=== PATIENT | male | born 1945 | race Caucasian/White ===

== ENCOUNTER 2023-10-17 09:44 | Day surgery (SDC) | payer BC, SELFPAY ==
[2023-10-15 10:59] VITALS: BMI 25.9
[2023-10-17 10:05] VITALS: BP 142/69; PULSE 66; RESP 18; TEMP 36.4; O2SAT 100; BMI 25.9
[2023-10-17] MEDS: LACTATED RINGERS 1,000 ML 42 ML IV (10:29)
--- NOTE | 2023-10-17 11:07 | PM.PREOP ---
Pre-operative Note Interval Note History & Physical reviewed/Exam performed by Physician: Yes Changes to H&P: No
--- NOTE | 2023-10-17 11:28 | SUR.OPER ---
Lithotomy on padded OR bed, head on pillow, arms secured on padded arm boards at <90 degrees abduction. Legs secured in padded yellow fins stirrups.
[2023-10-17] MEDS: levoFLOXacin 500 MG/100 ML PIGGYBACK 100 MG IV (11:45)
[2023-10-17] MEDS: ACETAMINOPHEN IV 1,000 MG/100 ML VIAL 400 MG IV (12:13)
[2023-10-17] MEDS: ONABOTULINUMTOXINA 200 UNIT VIAL INJ (12:13)
--- NOTE | 2023-10-17 12:28 | P.OP_ITS ---
Operative Date/Time/Diagnoses Date of procedure: 10/17/23 Time of procedure: 12:28 Pre-op diagnosis: 1. Urge incontinence. 2. Failure of oral pharmacologic therapy. Procedure & Clinicians Procedure: 1. Cystoscopy/Botox injection. Same procedure as scheduled: Yes Indications: 1. Urge incontinence. 2. Failure of oral pharmacologic therapy. Surgeon: Carlos Cordero Click Yes if Unassisted: Yes Anesthesia Type: General Operative Notes Findings: 1. Urethra-normal caliber without annular stricture or lesion. 2. External sphincter-coapted with normal overlying urothelium and vascularity. 3. 3.5-4 cm length prostate with mild lateral lobe hyperplasia and [id number] elevation of median lobe. 4. Bladder-severe trabeculation and cellule formation. Normal ureteral orifices bilaterally with clear efflux. No stone, tumor, or diverticulum seen. Closure Type: not applicable Specimen(s): none sent Estimated Blood Loss (mL): 0 Blood products transfused: none Procedure in detail: Patient was positioned supine and was administered general anesthesia. He was then repositioned in semi lithotomy in the lower abdomen, genitalia, and groin were then prepped and draped in sterile fashion. A 20 [place] continuous flow cystoscope was then passed the lower urinary tract with 12 degree lens with findings as described above. Aliquots of a proximally 1 cc times 30 were administered and random locations in the bladder base and lower lateral, and posterior wall of the bladder in the muscularis. The bladder was then drained completely in the continuous flow cystoscope was removed. The patient was then repositioned in supine, was awakened, then transferred to [facility] awake and in stable condition. Complications: none Post-operative Condition: stable Disposition: PACU Plan for aftercare: Discharge home.
[2023-10-17 12:29] VITALS: BP 133/72; PULSE 59; RESP 10; TEMP 36.3; O2SAT 97
[2023-10-17 12:34] VITALS: BP 147/80; PULSE 60; RESP 8; O2SAT 97
--- NOTE | 2023-10-17 12:37 | SUR.PHASEI ---
Received to PACU after general anesthesia. Oral airway in place. No further airway assistance required. Report from ANI Redd and DENVER Ramirez.
[2023-10-17 12:39] VITALS: BP 147/80; PULSE 60; RESP 12; O2SAT 97
[2023-10-17 12:44] VITALS: BP 148/79; PULSE 60; RESP 144; TEMP 36.3; O2SAT 95
[2023-10-17 12:45] VITALS: BP 154/85; PULSE 60; RESP 14; O2SAT 96
== END 2023-10-17 13:08 | disposition home or self-care (01) ==
PROVIDERS: PCP Specialist; Referring Provider Specialist; Visit Provider Specialist
PROC: (CPT 52287; principal; 2023-10-17 10:45)
DX: N39.41 Urge incontinence (principal); N32.89 Other specified disorders of bladder; I10 Essential (primary) hypertension; E11.9 Type 2 diabetes mellitus without complications; G47.33 Obstructive sleep apnea (adult) (pediatric); J45.909 Unspecified asthma, uncomplicated; E78.5 Hyperlipidemia, unspecified; I25.10 Atherosclerotic heart disease of native coronary artery without angina pectoris; I49.9 Cardiac arrhythmia, unspecified; K21.9 Gastro-esophageal reflux disease without esophagitis; Z79.84 Long term (current) use of oral hypoglycemic drugs; Z95.0 Presence of cardiac pacemaker; Z95.1 Presence of aortocoronary bypass graft; Z95.5 Presence of coronary angioplasty implant and graft
CPT/HCPCS: 52287; 82962; 93005; J0136; J0585; J1956; J3010

== ENCOUNTER 2024-09-20 09:50 | Day surgery (SDC) | payer BC, SELFPAY ==
[2024-09-13 10:52] VITALS: BMI 23.1
[2024-09-20] VITALS (7 sets, daily range): BP systolic 150–180; BP diastolic 82–95; PULSE 60–61; RESP 12–18; TEMP 36.5–36.6; O2SAT 95–99; BMI 23.1
[2024-09-20] MEDS: LACTATED RINGERS 1,000 ML 21 ML IV (10:30)
--- NOTE | 2024-09-20 11:35 | P.HP_ITS ---
History of Present Illness History of Present Illness Date Patient Seen: 09/20/24 Time Patient Seen: 11:35 Chief complaint: Overactive bladder Narrative: 79 y/o M returns today for a repeat intravesical Botox injection. Briefly, he admits to urinary frequency, urinary urgency (must be w/in the restroom w/in 2 minutes otherwise he will drip several drops of urine) and bothersome nocturia. He otherwise denies a weak urinary stream, the sensation of incomplete bladder emptying or urinary hesitancy/intermittency. He is no longer taking anticholinergics for management of his symptoms as they did not work for him. He tried to get ahold of Vibegron, however, it was very expensive and the [place] was never able to get it for him. Therefore, he underwent a cystoscopy w/ intravesical Botox injection in Sep and noted drast improvement in his symptoms for nearly 6-7 months. He is kindly requesting to have it repeated. Of note, he has a significant cardiac history. He has a pacemaker in place. He admits to at least 13 cardiac stents and a 6vCABG. He is currently taking Eliquis BID. He has not utilized Nitroglycerin in more than two years now. His Doctor Of Podiatric Medicine in Dr. Szymanski at [facility]. [facility] Medical History History of COVID-19 PAF (paroxysmal atrial fibrillation) Hypothyroidism Tardive dyskinesia Hypoxia CHF (congestive heart failure) Diabetes MARTA (obstructive sleep apnea) ICD (implantable cardioverter-defibrillator) in place Urge incontinence Heart attack (2001) Male erectile dysfunction Chronic kidney disease Surgical History S/P UPPP (uvulopalatopharyngoplasty) History of angioplasty History of cholecystectomy Hx of heart artery stent Hx of cystoscopy (10/17/23) Hx of CABG (2001) H/O vasectomy H/O circumcision History of back surgery Family History Father Coronary heart disease Mother Hyperlipidemia Hypertension Hearing impairment Social History marital status: household members: spouse Previous occupational history: retired Smoking Status: Never smoker alcohol intake: never Meds Home Medications and Allergies Home Medications Medication Instructions Recorded Confirmed Type apixaban 5 mg tablet (Eliquis) 5 mg PO BID 04/07/20 09/20/24 History atorvastatin 80 mg tablet 80 mg PO BEDTIME 04/07/20 09/20/24 History buspirone 10 mg tablet 10 mg PO BID 04/07/20 09/20/24 History finasteride 5 mg tablet 5 mg PO BEDTIME 04/07/20 09/20/24 History isosorbide mononitrate 60 mg 60 mg PO DAILY 04/07/20 09/20/24 History tablet,extended release 24 hr levothyroxine 75 mcg capsule 75 mcg PO DAILY 04/07/20 09/20/24 History sertraline 100 mg tablet 100 mg PO DAILY 04/07/20 09/20/24 History triamcinolone acetonide 0.025 % 1 applictn topical DAILY 04/07/20 08/16/24 History topical cream omeprazole 20 mg capsule,delayed 20 mg PO DAILY 10/30/22 09/20/24 History release glimepiride 1 mg tablet 1 mg PO BEDTIME 10/15/23 09/20/24 History metoprolol succinate 200 mg 200 mg PO BID 10/15/23 09/20/24 History tablet,extended release 24 hr tolterodine 4 mg capsule,extended 4 mg PO BEDTIME 10/15/23 09/20/24 History release 24 hr calcitriol 0.25 mcg capsule 0.25 mcg PO DAILY 08/16/24 09/20/24 History carvedilol 25 mg tablet 25 mg PO BID 08/16/24 09/20/24 History enalapril maleate 2.5 mg tablet 2.5 mg PO DAILY 08/16/24 09/20/24 History hydralazine 50 mg tablet 50 mg PO TID 08/16/24 09/20/24 History solriamfetol 150 mg tablet (Sunosi) 150 mg PO DAILY 08/16/24 09/20/24 History spironolactone 25 mg tablet 25 mg PO DAILY 08/16/24 08/16/24 History amlodipine 10 mg tablet 10 mg PO DAILY 09/20/24 09/20/24 History Allergies Allergy/AdvReac Type Severity Reaction Status Date / Time penicillin G Allergy Intermediate Hives Verified 09/20/24 10:10 bee venom protein (honey bee) Allergy Swelling Verified 09/20/24 10:10 cephalexin AdvReac Intermediate Nausea Verified 09/20/24 10:10 Review of Systems Review of Systems Narrative: CONSTITUTIONAL: Denies weight loss, fevers, chills. HEENT: Denies change in vision, hearing. RESP: Denies SOB, cough. CV: Denies palpations, CP. GI: Denies abdominal pain, nausea, vomiting, diarrhea. : Denies dysuria, hematuria, inability to void. MSK: Denies myalgia, joint pain. SKIN: Denies rash, pruritus. NEURO: Denies headache, syncope. PSYCH: Denies recent change in mood, anxiety, depression. Exam Vital Signs (past 8 hours): - 09/20/24 10:31 Temperature 97.7 F Pulse Rate 60 Respiratory Rate 16 Blood Pressure 165/82 H Pulse Oximetry 97 Oxygen Delivery Method Room Air Oxygen Delivery Method Room Air Narrative Exam Narrative: GEN: Alert and oriented X3. No acute distress. Well-nourished. EYES: PERRLA, EOMI. HENT: Moist mucus membranes, no scleral icterus, normal neck ROM. RESP: Unlabored breathing, equal rise and fall of chest bilaterally, no cyanosis appreciated. CV: No peripheral edema, unremarkable heart rate. ABD: Soft, non-tender, non-distended, no palpable masses. EXT: No edema, clubbing or cyanosis. SKIN: No rashes or lesions. NEURO: No focal neurologic deficits, CN II-XII grossly intact. PSYCH: Cooperative, appropriate mood and affect. Assessment & Plan Assessment and plan (1) Overactive bladder: Status: Acute Plan: 79 y/o M noted to have symptoms consistent w/ OAB and UUI. Discussed treatment options of OAB/UUI to include avoidance of common bladder irritants, remaining well-hydrated, pelvic floor physical therapy, urge suppression, percutaneous tibial nerve stimulation, trial of anticholinergics or beta-3 agonists, Interstim or intravesical Botox. He has not responded well to anticholinergics in the past and beta-3 agonists have either been very expensive or [facility] He also resides on [place], therefore, PFPT or PTNS are not options for him. He underwent a cystoscopy w/ intravesical Botox injection in Sep and responded very well to this therapy. Therefore, he is kindly requesting to have it repeated. Discussed risks of the procedure to include pain, bleeding, infection, inadvertent injury to urethra/bladder/ureteral orifice requiring either prolonged catheterization and/or an open emergent procedure to repair these structures, as well as the need for an indwelling concepcion catheter and/or CIC should his bladder become atonic second to his Botox injection. Informed consent was obtained today in clinic. His UA was otherwise unremarkable as well. Will reach out to his Doctor Of Podiatric Medicine for clearance regarding his pacemaker, his Cardiac clearance and recommendations for his blood thinner. This was completed without issues. His informed consent was repeated today. (2) Urge incontinence: Status: Acute Plan: Please see plan above. Time-Based Coding :: [TOTAL MINUTES] spent with patient and on the chart (including review of chart, obtaining history, exam, reviewing outside data, placing orders, documenting exam and treatment plan, and counseling patient) on [DATE].
[2024-09-20] MEDS: CLINDAMYCIN 900 MG/50 ML PIGGYBACK 50 MG IV (12:00)
--- NOTE | 2024-09-20 12:18 | SUR.OPER ---
Lithotomy on padded OR bed, head on pillow, arms secured on padded arm boards at <90 degrees abduction. Legs secured in padded yellow fins stirrups.
[2024-09-20] MEDS: ONABOTULINUMTOXINA 100 UNIT VIAL INJ (12:34)
--- NOTE | 2024-09-20 12:58 | PM.OP.1 ---
Procedure & Clinicians Procedure: Cystoscopy Intravesical instillation of Botox 100U Same procedure as scheduled: Yes Indications: 79 y/o M w/ h/o overactive bladder and urge urinary incontinence that is adequately controlled with intravesical botox instillation. He is kindly requesting a repeat procedure for management of his symptoms. Surgeon: Bruce Gonsalez Click Yes if Unassisted: Yes Anesthesia Type: General Operative Notes Findings: Grade 3 trabeculations throughout his bladder, coaptating lateral prostatic lobes, no intravesical median lobe Closure Type: not applicable Specimen(s): none sent Estimated Blood Loss (mL): 3 Blood products transfused: none Procedure in detail: Patient was identified in the preoperative holding area and consent confirmed. He was then brought to the operating room where general anesthesia was induced. He was then placed in the low lithotomy position. He was then prepped and draped in the usual sterile fashion. A surgical timeout was conducted and all were in agreement. Access to the bladder was obtained via a 21Fr cystoscope. Complete cystoscopy was then performed using a 30 degree lens. Grade 3 trabeculations were noted throughout his bladder, no suspicious bladder masses or lesions were noted. Bilateral ureteral orifices were noted to be orthotopic in nature. 100U of Botox were then mixed with 10cc of normal saline and this was injected along the posterior bladder wall, evenly spaced. Hemostasis was evaluated at case end and noted to be excellent. The cystoscope was then removed from his bladder. Anesthesia was reversed, he was extubated in the OR and transferred to the PACU in stable condition for recovery. Complications: none Post-operative Condition: stable Disposition: PACU Plan for aftercare: Discharge home from PACU. Will contact Urology clinic to coordinate another surgical date when his urinary symptoms worsen.
== END 2024-09-20 13:20 | disposition home or self-care (01) ==
PROVIDERS: PCP Specialist; Referring Provider Urology; Visit Provider Urology
PROC: (CPT 52287; principal; 2024-09-20 11:45)
DX: N32.81 Overactive bladder (principal); N39.41 Urge incontinence; R35.1 Nocturia; Z95.0 Presence of cardiac pacemaker; Z95.1 Presence of aortocoronary bypass graft; Z79.01 Long term (current) use of anticoagulants
CPT/HCPCS: 52287; J0585; J1100; J2405; J2704; J3010

== ENCOUNTER 2025-05-31 06:32 | Day surgery (SDC) | payer MEDICARE, BC, SELFPAY ==
[2025-05-25 12:20] VITALS: BMI 24.0
[2025-05-31] VITALS (7 sets, daily range): BP systolic 140–172; BP diastolic 66–85; PULSE 55–61; RESP 12–18; TEMP 36.4–36.6; O2SAT 92–97; BMI 24.0
[2025-05-31] MEDS: LACTATED RINGERS 1,000 ML 42 ML IV (07:08)
[2025-05-31] MEDS: ACETAMINOPHEN 325 MG TABLET 975 MG PO (07:12)
--- NOTE | 2025-05-31 07:37 | PM.HP.IH.1 ---
History of Present Illness History of Present Illness Date Patient Seen: 05/31/25 Time Patient Seen: 07:30 Chief complaint: Overactive bladder Narrative: 79 y/o M returns today for a repeat intravesical Botox injection. Briefly, he admits to urinary frequency, urinary urgency (must be w/in the restroom w/in 2 minutes otherwise he will drip several drops of urine) and bothersome nocturia. He otherwise denies a weak urinary stream, the sensation of incomplete bladder emptying or urinary hesitancy/intermittency. He is no longer taking anticholinergics for management of his symptoms as they did not work for him. He tried to get ahold of Vibegron, however, it was very expensive and the [place] was never able to get it for him. Therefore, he underwent a cystoscopy w/ intravesical Botox injection in Sep and noted drast improvement in his symptoms for nearly 6-7 months. He is kindly requesting to have it repeated. Of note, he has a significant cardiac history. He has a pacemaker in place. He admits to at least 13 cardiac stents and a 6vCABG. He is currently taking Eliquis BID. He has not utilized Nitroglycerin in more than two years now. His Supervisor [employer] in Dr. Szymanski at [facility]. [facility] Medical History MARTA on CPAP Pulmonary HTN Melanoma History of COVID-19 PAF (paroxysmal atrial fibrillation) Hypothyroidism Tardive dyskinesia Hypoxia CHF (congestive heart failure) Diabetes MARTA (obstructive sleep apnea) ICD (implantable cardioverter-defibrillator) in place (11/16/09) Urge incontinence Heart attack (2001) Male erectile dysfunction Chronic kidney disease Surgical History S/P UPPP (uvulopalatopharyngoplasty) History of angioplasty History of cholecystectomy Hx of heart artery stent Hx of cystoscopy (10/17/23) Hx of CABG (2001) H/O vasectomy H/O circumcision History of back surgery Family History Father Coronary heart disease Mother Hyperlipidemia Hypertension Hearing impairment Social History marital status: household members: spouse Previous occupational history: retired Smoking Status: Never smoker alcohol intake: never Meds Home Medications and Allergies Home Medications ?Medication ?Instructions ?Recorded ?Confirmed ?Type apixaban 5 mg tablet (Eliquis) 5 mg PO BID 04/07/20 05/31/25 History atorvastatin 80 mg tablet 80 mg PO BEDTIME 04/07/20 05/31/25 History buspirone 10 mg tablet 10 mg PO BID 04/07/20 05/31/25 History finasteride 5 mg tablet 5 mg PO BEDTIME 04/07/20 05/31/25 History isosorbide mononitrate 60 mg 60 mg PO DAILY 04/07/20 05/30/25 History tablet,extended release 24 hr levothyroxine 75 mcg capsule 75 mcg PO DAILY 04/07/20 05/31/25 History sertraline 100 mg tablet 100 mg PO BID 04/07/20 05/31/25 History triamcinolone acetonide 0.025 % 1 applictn topical DAILY 04/07/20 05/31/25 History topical cream omeprazole 20 mg capsule,delayed 20 mg PO DAILY 10/30/22 05/31/25 History release glimepiride 1 mg tablet 1 mg PO BEDTIME 10/15/23 05/31/25 History tolterodine 4 mg capsule,extended 4 mg PO BEDTIME 10/15/23 05/31/25 History release 24 hr calcitriol 0.25 mcg capsule 0.25 mcg PO DAILY 08/16/24 05/31/25 History carvedilol 25 mg tablet 25 mg PO BID 08/16/24 05/31/25 History enalapril maleate 2.5 mg tablet 2.5 mg PO DAILY 08/16/24 05/31/25 History hydralazine 50 mg tablet 50 mg PO TID 08/16/24 05/31/25 History solriamfetol 150 mg tablet (Sunosi) 150 mg PO DAILY 08/16/24 05/31/25 History spironolactone 25 mg tablet 25 mg PO DAILY 08/16/24 05/31/25 History amlodipine 10 mg tablet 10 mg PO DAILY 09/20/24 05/31/25 History isosorbide mononitrate 120 mg 120 mg PO TID 05/30/25 05/31/25 History tablet,extended release 24 hr albuterol sulfate 90 mcg/actuation 2 puff inhalation Q4H PRN wheezing 05/31/25 05/31/25 History aerosol inhaler Allergies Allergy/AdvReac Type Severity Reaction Status Date / Time penicillin G Allergy Intermediate Hives Verified 05/31/25 06:50 bee venom protein (honey bee) Allergy Swelling Verified 05/31/25 06:50 scallops AdvReac Severe Vomiting Verified 05/31/25 06:50 cephalexin AdvReac Intermediate Nausea Verified 05/31/25 06:50 Review of Systems Review of Systems Narrative: CONSTITUTIONAL: Denies weight loss, fevers, chills. HEENT: Denies change in vision, hearing. RESP: Denies SOB, cough. CV: Denies palpations, CP. GI: Denies abdominal pain, nausea, vomiting, diarrhea. : Denies dysuria, hematuria, inability to void. MSK: Denies myalgia, joint pain. SKIN: Denies rash, pruritus. NEURO: Denies headache, syncope. PSYCH: Denies recent change in mood, anxiety, depression. Exam Vital Signs (past 8 hours): - 05/31/25 07:13 Temperature 97.6 F Pulse Rate 55 L Respiratory Rate 18 Blood Pressure 151/77 H Pulse Oximetry 95 Oxygen Delivery Method Room Air Oxygen Delivery Method Room Air Narrative Exam Narrative: GEN: Alert and oriented X3. No acute distress. Well-nourished. EYES: PERRLA, EOMI. HENT: Moist mucus membranes, no scleral icterus, normal neck ROM. RESP: Unlabored breathing, equal rise and fall of chest bilaterally, no cyanosis appreciated. CV: No peripheral edema, unremarkable heart rate. ABD: Soft, non-tender, non-distended, no palpable masses. EXT: No edema, clubbing or cyanosis. SKIN: No rashes or lesions. NEURO: No focal neurologic deficits, CN II-XII grossly intact. PSYCH: Cooperative, appropriate mood and affect. Objective Labs Labs: Laboratory Results - last 24 hr 05/31/25 07:07 POC Whole Bld Glucose 151 H Assessment & Plan Assessment and plan (1) Overactive bladder: Status: Acute Plan: 79 y/o M noted to have symptoms consistent w/ OAB and UUI. Discussed treatment options of OAB/UUI to include avoidance of common bladder irritants, remaining well-hydrated, pelvic floor physical therapy, urge suppression, percutaneous tibial nerve stimulation, trial of anticholinergics or beta-3 agonists, Interstim or intravesical Botox. He has not responded well to anticholinergics in the past and beta-3 agonists have either been very expensive or he has been unable [facility]. He also resides on [facility], therefore, PFPT or PTNS are not options for him. He underwent a cystoscopy w/ intravesical Botox injection in Sep and responded very well to this therapy. Therefore, he is kindly requesting to have it repeated. Discussed risks of the procedure to include pain, bleeding, infection, inadvertent injury to urethra/bladder/ureteral orifice requiring either prolonged catheterization and/or an open emergent procedure to repair these structures, as well as the need for an indwelling concepcion catheter and/or CIC should his bladder become atonic second to his Botox injection. Informed consent was obtained today in clinic. His UA was otherwise unremarkable as well. Previously reached out to his Supervisor [employer] for clearance regarding his pacemaker, his Cardiac clearance and recommendations for his blood thinner. This was completed without issues. His informed consent was repeated today. Time-Based Coding :: [TOTAL MINUTES] spent with patient and on the chart (including review of chart, obtaining history, exam, reviewing outside data, placing orders, documenting exam and treatment plan, and counseling patient) on [DATE]. PROFEE Gluing Machine Feeder Document charge(s): Yes Charge Codes Inpatient/observation care including admit and discharge same day: [id number]
[2025-05-31] MEDS: levoFLOXacin 500 MG/100 ML PIGGYBACK 100 MG IV (07:50)
--- NOTE | 2025-05-31 08:14 | SUR.OPER ---
Lithotomy on padded OR bed, head on pillow, arms secured on padded arm boards at <90 degrees abduction. Legs secured in padded yellow fins stirrups. strap across waist
[2025-05-31] MEDS: ONABOTULINUMTOXINA 100 UNIT VIAL INJ (08:16)
--- NOTE | 2025-05-31 08:16 | PM.OP.1 ---
Operative Date/Time/Diagnoses Date of procedure: 05/31/25 Time of procedure: 08:00 Pre-op diagnosis: Overactive bladder, urge urinary incontinence Post-op diagnosis: same Procedure & Clinicians Procedure: Cystoscopy, intravesical botox instillation Same procedure(s) as scheduled: Yes Indications: 79 y/o M w/ h/o overactive bladder and urge urinary incontinence that is adequately controlled with intravesical botox instillation. He is kindly requesting a repeat procedure for management of his symptoms. Surgeon: Bruce Gonsalez Click Yes if Unassisted: Yes Anesthesia Type: MAC +/- Operative Notes Findings: Grade 3 trabeculations throughout his bladder, coaptating lateral prostatic lobes, no intravesical median lobe Closure Type: not applicable Specimen(s): none sent Applied: none Estimated Blood Loss (mL): 2 Blood products transfused: none Procedure in detail: Patient was identified in the preoperative holding area and consent confirmed. He was then brought to the operating room where general anesthesia was induced. He was then placed in the low lithotomy position. He was then prepped and draped in the usual sterile fashion. A surgical timeout was conducted and all were in agreement. Access to the bladder was obtained via a 21Fr cystoscope. Complete cystoscopy was then performed using a 30 degree lens. Grade 3 trabeculations were noted throughout his bladder, no suspicious bladder masses or lesions were noted. Bilateral ureteral orifices were noted to be orthotopic in nature. 100U of Botox were then mixed with 10cc of normal saline and this was injected along the posterior bladder wall, evenly spaced. Hemostasis was evaluated at case end and noted to be excellent. The cystoscope was then removed from his bladder. Anesthesia was reversed, he was extubated in the OR and transferred to the PACU in stable condition for recovery. Complications: none Post-operative Condition: stable Disposition: PACU Plan for aftercare: Discharge home from PACU. Will contact Urology clinic to coordinate another surgical date when his urinary symptoms worsen.
== END 2025-05-31 09:05 | disposition home or self-care (01) ==
PROVIDERS: PCP Family Medicine; Referring Provider Urology; Visit Provider Urology
PROC: (CPT 52287; principal; 2025-05-31 07:45)
DX: N32.81 Overactive bladder (principal); R39.15 Urgency of urination; R35.0 Frequency of micturition; R35.1 Nocturia; Z95.0 Presence of cardiac pacemaker; Z95.1 Presence of aortocoronary bypass graft; Z79.01 Long term (current) use of anticoagulants
CPT/HCPCS: 52287; 82962; J0585; J1100; J1956; J2405; J2704